=== PATIENT | male | born 2000 | race Caucasian/White ===

== ENCOUNTER 2023-10-15 08:00 | Outpatient (RCR) | payer BC, SELFPAY | END 2024-01-09 15:03 | disposition home or self-care (01) | PROVIDERS: PCP Internal Medicine Nephrology; Visit Provider Orthopaedic Surgery | DX: M25.551 Pain in right hip (principal); S73.191A Other sprain of right hip, initial encounter; Z74.09 Other reduced mobility; R53.1 Weakness; Z51.89 Encounter for other specified aftercare | CPT/HCPCS: 97110; 97161 ==